=== PATIENT | male | born 2000 | race Hispanic/Latino ===

== ENCOUNTER 2023-10-14 08:01 | Emergency (ER) | payer BC, SELFPAY | END 2023-10-14 09:25 | disposition home or self-care (01) | LOC: NAV ERS 08:01 | DX: B34.9 Viral infection, unspecified (principal); R04.0 Epistaxis; J06.9 Acute upper respiratory infection, unspecified; H10.9 Unspecified conjunctivitis | CPT/HCPCS: 87081; 87430; 87635; 87804; 99283 ==